=== PATIENT | male | born 1960 | race Hispanic/Latino ===

== ENCOUNTER → 2018-12-18 | Outpatient (CLI) | payer OTHER | END | disposition home or self-care (01) | LOC: OIH 10:52 | PROVIDERS: ATTEND Internal Medicine Cardiovascular Disease | DX: Z13.6 Encounter for screening for cardiovascular disorders (principal) | CPT/HCPCS: 75571 ==

== ENCOUNTER 2022-11-14 07:44 | Emergency (ER) | payer OTHER ==
[~2022-11-14] VITALS: Ht 165.1 cm; Wt 104.3 kg
[~2022-11-14 07:44] MED LIST: ASPI-1005 PO; ATOR40TA69 PO; FURO40TA7 PO; LOSA50TA2 PO; METO100T14 PO; OMEP20TA20 PO
[2022-11-14 08:11] LABS: BASOPHILS % (AUTO) 0.6 % (0.0-5.0); EOSINOPHILS % (AUTO) 1.1 % (0.0-8.0); HEMATOCRIT 40.6 % (42-54); MEAN CORPUSCULAR HEMOGLOBIN 26.8 pg (27.0-33.0); MEAN CORPUSCULAR HGB CONC 34.2 g/dL (32.0-36.0); MEAN CORPUSCULAR VOLUME 78.4 fL (79-99); MONOCYTES % (AUTO) 8.3 % (3.0-13.0); NEUTROPHILS % (AUTO) 67.4 % (40.0-77.0); PLATELET COUNT (AUTO) 166 K/uL (130-400); RED BLOOD CELL COUNT(AUTO) 5.18 MIL/uL (4.50-6.20); RED CELL DISTRIBUTION WIDTH 12.7 % (11.0-15.5); WHITE BLOOD COUNT (AUTO) 10.7 K/uL (4.8-10.8)
[2022-11-14 08:27] LABS: ALBUMIN 3.1 g/dL (3.5-5.0); CREATININE 1.1 mg/dL (0.5-1.5); TOTAL PROTEIN, SERUM 6.9 g/dL (6.0-8.3)
[2022-11-14 08:55] LABS: APPEARANCE,URINE CLEAR (CLEAR); BILIRUBIN,URINE NEGATIVE (NEGATIVE); COLOR,URINE YELLOW (YELLOW); GLUCOSE, URINE (UA) NEGATIVE (NEGATIVE); KETONES,URINE NEGATIVE (NEGATIVE); LEUKOCYTE ESTERASE ,URINE NEGATIVE Leu/uL (NEGATIVE); NITRATE,URINE NEGATIVE (NEGATIVE); OCCULT BLOOD,URINE NEGATIVE (NEGATIVE); PH,URINE 5.5 (5.0-8.0); PROTEIN,URINE 10 mg/dL (NEGATIVE)
[2022-11-14 09:37] LABS: BACTERIA,URINE RARE /HPF (None Seen); MUCUS,URINE RARE LPF (None Seen); RBC,URINE 0-1 /HPF (0-1); SQUAMOUS EPITHELIAL CELL,UR RARE /HPF (0-2); WBC,URINE 0-1 /HPF (0-1)
[2022-11-14 09:38] VITALS: BP 98/45
[2022-11-14] MEDS ORDERED: PANTOPRAZOLE 40 MG/VIAL IVP STA (10:25)
[2022-11-14] MEDS ORDERED: FUROSEMIDE 40MG VIAL IV STA (10:49)
== END 2022-11-14 11:58 | disposition home or self-care (01) ==
LOC: EDH 07:44
DX: I11.0 Hypertensive heart disease with heart failure (principal); I50.9 Heart failure, unspecified; Z95.1 Presence of aortocoronary bypass graft; Z79.899 Other long term (current) drug therapy; Z79.82 Long term (current) use of aspirin; Z20.822 Contact with and (suspected) exposure to COVID-19
CPT/HCPCS: 99285; 96374; 71045; 87635; 96375; 84484; 80053; 83880; 85025; 87804 ×2; 81001; 36415; 93005; C9803; C9113; J1940

== ENCOUNTER 2024-05-31 08:55 | Day surgery (SDC) | payer OTHER ==
[2024-05-27 09:45] VITALS: BP 140/92; PULSE 70; RESP 16
[2024-05-27 09:55] LABS: CREATININE 1.1 mg/dL (0.5-1.3)
[2024-05-27 10:00] LABS: INR 0.99 (0.85-1.15); PROTHROMBIN TIME 10.7 SEC (9.6-11.6)
[2024-05-27 10:01] LABS: PARTIAL THROMBOPLASTIN TIME 26.2 SEC (26.3-35.5)
[2024-05-27 10:02] LABS: BASOPHILS # (AUTO) 0.04 K/uL (0.00-0.20); BASOPHILS % (AUTO) 0.5 % (0.0-5.0); EOSINOPHILS # (AUTO) 0.17 K/uL (0.00-0.70); EOSINOPHILS % (AUTO) 2.2 % (0.0-8.0); HEMATOCRIT 47.9 % (42-54); IMMATURE GRANULOCYTE ABSOLUTE 0.04 K/uL (0-1); LYMPHOCYTES # (AUTO) 2.2 K/uL (1.0-4.8); LYMPHOCYTES % (AUTO) 28.9 % (21.0-51.0); MEAN CORPUSCULAR HGB CONC 33.8 g/dL (32.0-36.0); MEAN CORPUSCULAR VOLUME 79.7 fL (79-99); MONOCYTES # (AUTO) 0.6 K/uL (0.1-1.0); MONOCYTES % (AUTO) 8.3 % (3.0-13.0); NEUTROPHILS # (AUTO) 4.6 K/uL (1.8-7.7); NEUTROPHILS % (AUTO) 59.6 % (40.0-77.0); PLATELET COUNT (AUTO) 141 K/uL (130-400); RED BLOOD CELL COUNT(AUTO) 6.01 MIL/uL (4.50-6.20); RED CELL DISTRIBUTION WIDTH 14.2 % (11.0-15.5); WHITE BLOOD COUNT (AUTO) 7.8 K/uL (4.8-10.8)
[~2024-05-31] VITALS: Ht 165.1 cm; Wt 99.5 kg
[2024-05-31] VITALS (9 sets, daily range): BP systolic 113–154; BP diastolic 72–93; PULSE 64–73; RESP 14–16
[~2024-05-31 08:55] MED LIST changes: +AEC81 PO; -ASPI-1005 PO; -ATOR40TA69 PO; +ATOR40TA71 PO; +FURO40TA5 PO; -FURO40TA7 PO; -LOSA50TA2 PO; +OMEP20CA12 PO; -OMEP20TA20 PO
[2024-05-31] MEDS ORDERED: LIDOCAINE HCL 1% MDV 50ML VIAL ONE (12:58)
[2024-05-31] MEDS ORDERED: IOHEXOL-350 50ML VIAL IV ONE (12:58)
[2024-05-31] MEDS ORDERED: BUPIVACAINE/PF 0.25% 30ML VIAL IJ ONE (12:58)
[2024-05-31] MEDS ORDERED: CEFAZOLIN SODIUM 1 GM VIAL ONE ×2 (12:58→18:21)
[2024-05-31] MEDS ORDERED: MIDAZOLAM HCL 1 MG/ML 2ML VIAL ONE ×3 (13:27→14:20)
[2024-05-31] MEDS ORDERED: MEPERIDINE-PF 25 MG/ML SYG ONE ×3 (13:27→14:20)
[2024-05-31] MEDS ORDERED: THROMBIN-JMI 5000 UNIT/VIAL TP ONE (15:27)
[2024-05-31] MEDS ORDERED: ACETAMINOPHEN WITH CODEINE 1 TAB TAB PO PRN (15:30)
[2024-05-31] MEDS ORDERED: ONDANSETRON 4MG INJ IV PRN (15:30)
[2024-05-31] MEDS: ACETAMINOPHEN WITH CODEINE 1 TAB TAB PO PRN (18:22)
[2024-05-31] MEDS: CEFAZOLIN SODIUM 1 GM VIAL IVPB SCH (18:22)
== END 2024-05-31 20:30 | disposition home or self-care (01) ==
LOC: DAH 08:55
PROVIDERS: ATTEND Internal Medicine Cardiovascular Disease
DX: Z45.010 Encounter for checking and testing of cardiac pacemaker pulse generator [battery] (principal); I48.91 Unspecified atrial fibrillation; I25.10 Atherosclerotic heart disease of native coronary artery without angina pectoris; I70.0 Atherosclerosis of aorta; I44.2 Atrioventricular block, complete; I11.0 Hypertensive heart disease with heart failure; I50.9 Heart failure, unspecified; K21.9 Gastro-esophageal reflux disease without esophagitis; E66.9 Obesity, unspecified; E78.5 Hyperlipidemia, unspecified; Z79.899 Other long term (current) drug therapy; Z83.3 Family history of diabetes mellitus; Z82.49 Family history of ischemic heart disease and other diseases of the circulatory system
CPT/HCPCS: 80048; 85025; 85610; 85730; 36415; 93005 ×2; 33229; 33225; 71045; C1769 ×2; C1900; C2621; C1894; J0690 ×2; J0665; J2250 ×3; J3490 ×2; J2175 ×3; Q9967; 99156; 99157